=== PATIENT | female | born 1980 | race Caucasian/White ===

== ENCOUNTER → 2023-12-29 18:41 | Outpatient (REF) | payer BC, SELFPAY | LOC: WDC 18:41 | PROVIDERS: ATTENDING PHYSICIAN Family Medicine | DX: Z12.31 Encounter for screening mammogram for malignant neoplasm of breast (principal) | CPT/HCPCS: 77063; 77067 ==

== ENCOUNTER 2024-03-13 20:40 | Emergency (ER) | payer BC, SELFPAY ==
[2024-03-13 20:42] VITALS: BP 163/94
--- NOTE | 2024-03-13 22:32 | ED.GENMED ---
History of Present Illness
General
Chief Complaint: Musculo-Skeletal Complaint
Source: patient and family
Exam Limitations: none
Time Seen by Provider: 03/13/24 21:18
Nursing documentation reviewed up to this point in time: agreed with
Travel History
Have you had any contact with someone who has COVID-19?: No
Do you have any symptoms of coronavirus? Fever > 100 degrees, chills, cough, shortness of breath, sore throat, loss of taste or smell, muscle aches, or headache?: No
History of Present Illness
History of Present Illness:
43-year-old female presenting to the emergency department after falling landing directly on her left thumb prior to arrival. Scripture left knee but denies additional injuries. Denies any chest pain shortness of breath no head injury no neck pain.
No numbness or weakness.
Past History
Past History
ED Past Medical History: None
ED Past Surgical History: None
Social History
Tobacco: Non-smoker
Personal:
Review of Systems
Review of Systems
Allergies reviewed?: Yes
All Other Systems: ROS reviewed and negative except as documented in HPI and ROS
Phy Exam
Physical Exam
Physical Exam:
GENERAL: Alert , in no apparent distress
EYE: pupils equal and reactive
NECK: Supple, no significant adenopathy.
ENT: o/p clr, mmm.
CARDIAC: Regular rate and rhythm .
LUNGS: Clear breath sounds bilaterally, no acute respiratory distress, no wheezes/rales/rhonchi
ABDOMEN: Soft, without focal tenderness, no r/g, no cvat
NEUROLOGICAL: Alert and oriented, no focal neuro deficits
SKIN: Warm and dry, skin intact.
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
PSYCH: Normal and appropriate interaction.
Course
Orders/Labs/Results
Orders:
Orders
03/13/24 20:44
CR Hand - Left Min 3 Views Urgent
Comment:
Reason For Exam: injury
Vital Signs
Initial and Last Documented VS:
Initial Vital Signs
Temp Pulse Resp BP Pulse Ox
98.3 F 69 18 163/94 99
03/13/24 20:42 03/13/24 20:42 03/13/24 20:42 03/13/24 20:42 03/13/24 20:42
Last Documented Vital Signs
Temp Pulse Resp BP Pulse Ox
98.3 F 69 18 163/94 99
03/13/24 20:42 03/13/24 20:42 03/13/24 20:42 03/13/24 20:42 03/13/24 20:42
Procedures
Splinting/Sling Placement
Left Thumb:
Procedure completed by: myself
Type of splint: thumb spica
Splint material: fiberglass
Splint checked by provider?: Yes
Type of sling: sling fitted
Normal distal neurovascular exam?: Yes
MDM/Problems Addressed
MDM/Problems Addressed:
43-year-old female presenting to the emergency department today with concerns of a thumb injury prior to arrival after falling directly on her thumb from a mechanical fall. X-ray showed possible dissociation at the CMC joint of the thumb concerning
this patient was placed in a thumb spica splint advised for close outpatient follow-up with orthopedics for further assessment. Otherwise neurovascular intact. Stable for outpatient management
*Critical Care Note
Total Time (30-74mins, 75-104mins- exclusive of procedures): Not Applicable
ED Attending Note
-
Portions of this chart may have been created with voice recognition software.� Occasional wrong word or��sound alike� substitutions may have occurred due to the inherent limitations of voice recognition software.
Discharge Plan
Departure
Patient Disposition: Home (Routine Discharge)
Date of Disposition: 03/13/24
Time of Disposition: 22:34
Patient with high blood pressure during this ER visit?: No
Condition: Good
Covid-19: Not Applicable
Discharge Problem:
Injury of thumb, left
Instructions: Sprain (DC)
Prescriptions:
No Action
norgestimate-ethinyl estradiol [Sprintec (28)] 1 TAB tablet
1 tab PO DAILY
polymyxin B sulf-trimethoprim [Polytrim] 10 ML drops
1 drp OP Q3H Qty: 10 0RF
Rx Instructions:
while awake to affected eye
Referrals:
Andrei Shah MD [Family Provider] -
Silvestre Cardoza MD [Active] - Follow up in 5-7 days
Activity Restrictions/Additional Instructions:
You came to the emergency department today with concerns of a thumb injury. You are placed in a thumb spica splint and you will need to follow-up closely with orthopedics within 1 week for reassessment. Return to the emergency department for any
worsening, new or concerning symptoms.
Interventions
Interventions:
*Risk Screen - Suicide Last Done: 03/13/24 20:42
*General Assessment Last Done: 03/13/24 20:42
*Neglect/Abuse Screening Last Done: 03/13/24 20:42
ED- Fall Risk Assessment Last Done: 03/13/24 21:29
*ED COVID-19 Vaccine History Last Done: 03/13/24 21:30
*Nursing Disposition Last Done: 03/13/24 22:50
ED-Musculoskeletal Assessment Last Done: 03/13/24 22:02
Discharge Date and Time
Discharge Date/Time: 03/13/24 22:51
Print Language: BURKINAN
== END 2024-03-13 22:51 | disposition home or self-care (01) ==
LOC: EMR 20:40
PROVIDERS: EMERGENCY PHYSICIAN Emergency Medicine; FAMILY PHYSICIAN Family Medicine
DX: S69.92XA Unspecified injury of left wrist, hand and finger(s), initial encounter (principal); X58.XXXA Exposure to other specified factors, initial encounter
CPT/HCPCS: 99283; 29125; 73130

== ENCOUNTER → 2024-11-12 10:39 | Outpatient (REF) | payer BC, SELFPAY ==
[2024-11-12 11:08] LABS: % Basophils 0.5 % (0-2); % Eosinophils 0.9 % (0-6); % Immature Granulocytes 0.2 % (0-0.5); % Lymphocytes 19.7 % (20.5-51.1); % Monocytes 5.7 % (1.7-9.3); Absolute Eosinophils 0.1 10^3/uL (0-0.7); Absolute Lymphocytes 1.7 10^3/uL (1.2-3.4); Absolute Monocytes 0.5 10^3/uL (0.1-0.6); Absolute Neutrophils 6.3 10^3/uL (1.4-6.5); Hematocrit 41.6 % (37.0-47.0); Mean Corp Hgb Conc. 33.7 g/dL (33.0-37.0); Mean Corpuscular Hgb 29.7 pg (27.0-31.0); Mean Corpuscular Volume 88.1 fL (81.0-99.0); Mean Platelet Volume 8.7 fL (7.4-10.4); Nucleated Red Blood Cells % 0 %; Platelet Count 256 10^3/uL (130-400); Red Blood Cell Count 4.72 10^6/uL (4.20-5.40); Red Cell Dist. Width 11.8 % (11.5-14.5); White Blood Cell Count 8.6 10^3/uL (4.8-10.8)
[2024-11-12 11:38] LABS: ALT (SGPT) 12 U/L (0-35); AST (SGOT) 21 U/L (14-36); Albumin 4.1 g/dl (3.5-5.0); Alkaline Phosphatase 71 U/L (38-126); Blood Urea Nitrogen 12 mg/dl (7-17); Carbon Dioxide 28 mmol/L (22-30); Chloride 103 mmol/L (98-107); Glucose 88 mg/dl (70-99); Potassium 4.4 mmol/L (3.5-5.1); Sodium 137 mmol/L (135-145); Total Bilirubin 0.6 mg/dl (0.2-1.3); Total Protein 6.8 g/dl (6.3-8.2); eGFR > 60.00
== END ==
LOC: REG 10:39
PROVIDERS: ATTENDING PHYSICIAN Surgery Plastic and Reconstructive Surgery
DX: Z01.818 Encounter for other preprocedural examination (principal)
CPT/HCPCS: 36415; 80053; 85025; 93005

== ENCOUNTER → 2024-12-07 15:39 | Outpatient (REF) | payer BC, SELFPAY | LOC: CLAB 15:39 | PROVIDERS: ATTENDING PHYSICIAN Surgery Plastic and Reconstructive Surgery | DX: Z41.1 Encounter for cosmetic surgery (principal) | CPT/HCPCS: 88305 ==

== ENCOUNTER → 2025-06-22 16:10 | Outpatient (REF) | payer BC, SELFPAY | LOC: WDC 16:10 | PROVIDERS: ATTENDING PHYSICIAN Advanced Practice Midwife; FAMILY PHYSICIAN Family Medicine | DX: Z12.31 Encounter for screening mammogram for malignant neoplasm of breast (principal) | CPT/HCPCS: 77063; 77067 ==